=== PATIENT | female | born 1960 | race American Indian/Alaskan Native ===

== ENCOUNTER 2017-04-17 15:13 | Inpatient (IN) | payer OTHER ==
[2017-04-17 17:31] VITALS: BMI 25.3
--- NOTE | 2017-04-17 20:18 | HP ---
COWS - Scale Resting Pulse: 0= [place] 80 or Below Sweatin=Flushed/Facial Moisture Restless Observation: 1= Difficult to Sit Still Pupil Size: 1= Pupils >than Normal Bone or Joint Aches: 4=Acute Joint/Muscle Pain Runny Nose/ Eye Tearin= Runny Nose/Eyes GI Upset > 30mins: 2= Nausea/Diarrhea Tremor Observation: 2= Slight Tremor Visible Yawning Observation: 0= None Anxiety or Irritability: 4=Extreme Anxiety Goose Flesh Skin: 0=Smooth Skin COWS Score: 18 Admission [facility] Chief Complaint: Opiate withdrawal symptoms Allergies/Adverse Reactions: Allergies Allergy/AdvReac Type Severity Reaction Status Date / Time diphenhydramine HCl Allergy Mild Hives Verified 04/17/17 18:29 [From Benadryl] sulfur [From Sulfur-8] Allergy Mild Hives Verified 04/17/17 18:29 Sulfa (Sulfonamide Allergy Verified 04/17/17 18:29 Antibiotics) History of Present Illness: 56 years old female with opiate dependence is admitted to detox. Patient states that she has spinal problem and back pain and was prescribed oxycodone which led t her dependence on opiates. She states, ''I want to com off the narcotic''. Patient has medical history of HTN, Hep C, sickle cell trait, S/P stroke and brain aneurysm in December 2016 and Schizophrenia. Patient has right side weakness. Denies suicidal ideation. Exam Limitations: Physical Impairment (right side eakness) - Ebola screening Have you traveled outside of the country in the last 21 days: No Have you had contact with anyone from an Ebola affected area: No Have you been sick,other than usual withdrawal symptoms: No - Review of Systems Constitutional: Chills, Diaphoresis, Loss of Appetite, Malaise, Night Sweats, Changes in sleep, Weakness EENT: reports: Nose Congestion, Sinus Pressure Respiratory: reports: No Symptoms reported Cardiac: reports: No Symptoms Reported : reports: Discharge (brownish), Other (fishy odor) Musculoskeletal: reports: Muscle Pain, Muscle Weakness Integumentary: reports: Dryness, Flushing, Sweating Neuro: reports: Headache, Tingling, Tremors Endocrine: reports: Flushing Hematology: reports: Anemia (sickle cell trait) Psychiatric: reports: Mood/Affect Appropiate, Orientated x3, Anxious Other Systems: Reviewed and Negative Patient History - Patient Medical History Hx Anemia: Yes (SICKLE CELL TRAIT) Hx Asthma: No Hx Chronic Obstructive Pulmonary Disease (COPD): No Hx Cancer: No Hx Cardiac Disorders: No Hx Congestive Heart Failure: No Hx Hypertension: Yes Hx Hypercholesterolemia: No Hx Pacemaker: No HX Cerebrovascular Accident: No Hx Seizures: No Hx Dementia: No Hx Diabetes: No Hx Gastrointestinal Disorders: No Hx Liver Disease: No Hx Genitourinary Disorders: No Hx Sexually Transmitted Disorders: No Hx Renal Disease (ESRD): No Hx Thyroid Disease: No Hx Human Immunodeficiency Virus (HIV): No (NEGATIVE HX) Hx Hepatitis C: Yes (Not treated) Hx Depression: No Hx Suicide Attempt: No (DENIES) Hx Bipolar Disorder: No Hx Schizophrenia: Yes - Patient Surgical History Past Surgical History: No Hx Neurologic Surgery: No Hx Cataract Extraction: No Hx Cardiac Surgery: No Hx Lung Surgery: No Hx Breast Surgery: No Hx Breast Biopsy: No Hx Abdominal Surgery: No Hx Appendectomy: No Hx Cholecystectomy: No Hx Genitourinary Surgery: No Hx Section: No Hx Orthopedic Surgery: No Hx Hysterectomy: No Anesthesia Reaction: No - PPD History Previous Implant?: Yes Documented Results: Negative w/proof Implanted On Prior [facility] Admission?: Yes Date: 02/19/14 Results: 0 mm PPD to be Administered?: Yes - Reproductive History Patient is a Female of Child Bearing Age (11 -55 yrs old): Yes Last Menstrual Period: 02/15/10 Patient : No - Smoking Cessation Smoking history: Current every day smoker Have you smoked in the past 12 months: Yes Aproximately how many cigarettes per day: 10 Cigars Per Day: 0 Hx Chewing Tobacco Use: No Initiated information on smoking cessation: Yes 'Breaking Loose' booklet given: 04/17/17 - Substance & Tx. History Hx Alcohol Use: No Hx Substance Use: Yes (Morphine) Substance Use Type: Opiates Hx Substance Use Treatment: Yes ([facility] 02/2014) - Substances Abused Morphine Route: Oral Frequency: Daily Amount used: 30mg Age of first use: 56 Date of Last Use: 04/16/17 Family Disease History - Family Disease History Family Disease History: Heart Disease: Father (HTN), Mother (HTN), Other: Brother (KIDNEY DISEASE) Admission Physical Exam BHS - Vital Signs Vital Signs: Vital Signs - 24 hr 04/17/17 17:25 Temperature 96.2 F L Pulse Rate 64 Respiratory 18 Rate Blood Pressure 130/80 - Physical General Appearance: Yes: Moderate Distress, Tremorous, Irritable, Sweating, Anxious HEENTM: Yes: EOMI, Normal Voice, DEYA, Nasal Congestion, Rhinorrhea, Other ( Upper and lower dentures) Respiratory: Yes: Lungs Clear, Normal Breath Sounds, No Respiratory Distress Neck: Yes: Supple Breast: Yes: Breast Exam Deferred Cardiology: Yes: Regular Rhythm, Regular Rate, S1, S2 Abdominal: Yes: Within Normal Limits, Normal Bowel Sounds, Soft Genitourinary: Yes: Vaginal Discharge (brownish x 6 months), Other (fishy odor) Back: Yes: Normal Inspection Musculoskeletal: Yes: Back pain, Muscle Pain, Muscle weakness Extremities: Yes: Tremors Neurological: Yes: Fully Oriented, Alert Integumentary: Yes: Dry, Diaphoresis Lymphatic: Yes: Within Normal Limits - Diagnostic (1) Hep C w/o coma, chronic Current Visit: Yes Status: Chronic (2) Sickle cell trait Current Visit: No Status: Chronic (3) Cocaine dependence Current Visit: No Status: Active (4) Opioid dependence Current Visit: Yes Status: Active (5) Nicotine dependence Current Visit: Yes Status: Acute (6) Arthritis Current Visit: No Status: Chronic (7) Essential hypertension Current Visit: No Status: Chronic Cleared for Admission [facility] - Detox or Rehab [facility] Level of Care: Medically Managed Detox Regimen/Protocol: Methadone [facility] Breath Alcohol Content Breath Alcohol Content: 0 Urine Pregancy Test - Result Urine Test Results: Negative- NO Line Present Urine Drug Screen - Results Drug Screen Negative: No Urine Drug Screen Results: NAWAF-Cocaine, OPI-Opiates
[2017-04-17] MEDS ORDERED: ACETAMINOPHEN 325 MG TABLET (FP) PO PRN (20:37)
[2017-04-17] MEDS ORDERED: guaiFENesin/D-METHORPHAN HB 10 ML UNIT-DOSE CUPS PO PRN (20:37)
[2017-04-17] MEDS ORDERED: MAGNESIUM HYDROX 2400MG/30ML ORAL SUSPENSION 30 ML CUP PO PRN (20:37)
[2017-04-17] MEDS ORDERED: MAG HYDROX/AL HYDROX/SIMETH 30 ML UNIT-DOSE CUP PO PRN (20:37)
[2017-04-17] MEDS ORDERED: METHADONE HCL 10 MG TABLET (FOR DETOX USE ONLY) PO ONE ×2 (20:37→23:00)
[2017-04-17] MEDS ORDERED: NICOTINE POLACRILEX 2 MG GUM BUC PRN (20:37)
[2017-04-17] MEDS ORDERED: IBUPROFEN 400 MG TABLET (FP) PO PRN (20:37)
[2017-04-17] MEDS ORDERED: P-EPHED 60MG/TRIPROLIDI 2.5MG TABLET PO PRN (20:37)
[2017-04-17] MEDS ORDERED: MENTHOL/PHENOL 1 EACH UD MM PRN (20:37)
[2017-04-17] MEDS ORDERED: LOPERAMIDE HCL 2 MG CAPSULE PO PRN (20:37)
[2017-04-17] MEDS ORDERED: MAGNESIUM CITRATE 300 ML BOTTLE PO PRN (20:37)
[2017-04-17] MEDS: cloNIDine HCL 0.1 MG TABLET PO SCH (21:40)
[2017-04-17] MEDS: diazePAM 5 MG TABLET PO PRN (21:41)
[2017-04-17] MEDS: THIAMINE HCL 100 MG TABLET (FP) PO SCH (21:41)
[2017-04-17 22:54] LABS: URINE APPEARANCE SLCLOUDY; URINE BILIRUBIN NEGATIVE (NEGATIVE); URINE BLOOD NEGATIVE (NEGATIVE); URINE COLOR DKYELLOW; URINE GLUCOSE (UA) NEGATIVE (NEGATIVE); URINE KETONE NEGATIVE (NEGATIVE); URINE NITRITE NEGATIVE (NEGATIVE); URINE PROTEIN NEGATIVE (NEGATIVE)
[2017-04-18] MEDS: diazePAM 5 MG TABLET PO PRN ×4 (06:34→22:44)
[2017-04-18 09:08] LABS: URINE LEUK ESTERASE 3+ (NEGATIVE)
[2017-04-18 09:09] LABS: URINE BACTERIA MODERATE /hpf (NEGATIVE); URINE RBC 1; URINE WBC 15
[2017-04-18 09:44] LABS: MCH 32.1 pg (25.7-33.7); MCHC 33.5 g/dl (32.0-36.0); MEAN PLT VOLUME 8.2 fl (7.5-11.1); PLATELET COUNT 244 K/MM3 (134-434); RDW 13.1 % (11.6-15.6); WHITE BLOOD COUNT 6.5 K/mm3 (4.0-10.0)
[2017-04-18] MEDS ORDERED: METHADONE HCL 10 MG TABLET (FOR DETOX USE ONLY) PO ONE (10:00)
[2017-04-18] MEDS: PRENATAL VITAMINS W/ FOLIC ACID TABLET (FP) PO SCH (10:39)
[2017-04-18] MEDS: LISINOPRIL 20 MG TABLET (FP) PO SCH (10:40)
[2017-04-18] MEDS: ASPIRIN 81 MG CHEWABLE TABLETS PO SCH (10:40)
[2017-04-18] MEDS: cloNIDine HCL 0.1 MG TABLET PO SCH ×2 (10:40→22:43)
[2017-04-18] MEDS: NIFEdipine E.R 60 MG TABLET (UD) PO SCH (10:40)
[2017-04-18] MEDS: NICOTINE 14 MG/24 HOURS TOPICAL PATCH TD SCH (10:40)
[2017-04-18 11:08] LABS: ALBUMIN 3.1 g/dl (3.4-5.0); ANION GAP 6 (8-16); CALCIUM 8.4 mg/dL (8.5-10.1); CO2 29 mmol/L (21-32); CREATININE 1.1 mg/dL (0.55-1.02); GLUCOSE,RANDOM 133 mg/dL (74-106); SGOT/AST 47 U/L (15-37); SGPT/ALT 28 U/L (12-78)
[2017-04-18 11:10] LABS: ALK PHOS 53 U/L (45-117); BILIRUBIN,TOTAL 0.6 mg/dL (0.2-1.0); TOT PROT 6.4 g/dl (6.4-8.2)
--- NOTE | 2017-04-18 11:24 | PN ---
S COWS - Scale Resting Pulse: 0= [place] 80 or Below Sweatin=Flushed/Facial Moisture Restless Observation: 1= Difficult to Sit Still Pupil Size: 0= Normal to Room Light Bone or Joint Aches: 2= Severe Diffuse Aches Runny Nose/ Eye Tearin= Runny Nose/Eyes GI Upset > 30mins: 1= Stomach Cramp Tremor Observation of Outstretched Hands: 2= Slight Tremor Visible Yawning Observation: 2= >3x During Session Anxiety or Irritability: 2=Irritable/Anxious Goose Flesh Skin: 3=Piloerection COWS Score: 17 S Progress Note (SOAP) Subjective: constipation fishy odor vaginally sweats shakes interrupted sleep Objective: 04/18/17 11:23 Vital Signs Temperature 97.5 F L 04/18/17 10:29 Pulse Rate 69 04/18/17 10:29 Respiratory Rate 18 04/18/17 10:29 Blood Pressure 119/76 04/18/17 10:29 O2 Sat by Pulse Oximetry (%) Laboratory Tests 04/17/17 04/18/17 04/18/17 22:40 07:35 07:35 WBC 6.5 RBC 3.77 Hgb 12.1 Hct 36.2 MCV 96.0 MCH 32.1 MCHC 33.5 RDW 13.1 Plt Count 244 D MPV 8.2 Sodium 142 Potassium 3.9 Chloride 107 Carbon Dioxide 29 Anion Gap 6 L BUN 14 Creatinine 1.1 H D Creat Clearance w eGFR 51.38 Random Glucose 133 H Calcium 8.4 L Total Bilirubin 0.6 AST 47 H D ALT 28 D Alkaline Phosphatase 53 D Total Protein 6.4 Albumin 3.1 L D Urine Color Dkyellow Urine Appearance Slcloudy Urine pH 5.0 Ur Specific [place] 1.016 Urine Protein Negative Urine Glucose (UA) Negative Urine Ketones Negative Urine Blood Negative Urine Nitrite Negative Urine Bilirubin Negative Urine Urobilinogen 2.0 H Ur Leukocyte Esterase 3+ H Urine RBC 1 Urine WBC 15 Ur Epithelial Cells Moderate Urine Bacteria Moderate aaox3 ambulating no acute distress Assessment: 04/18/17 11:23 withdrawal sx Plan: continue detox increase fluids flagly ordered colace tid
--- NOTE | 2017-04-18 11:28 | PN ---
BHS Progress Note (SOAP) Subjective: anal area is irritable sweats anxiety Objective: 04/18/17 11:27 Vital Signs Temperature 97.5 F L 04/18/17 10:29 Pulse Rate 69 04/18/17 10:29 Respiratory Rate 18 04/18/17 10:29 Blood Pressure 119/76 04/18/17 10:29 O2 Sat by Pulse Oximetry (%) repeat potassium level pending aaox3 ambulating no acute distress Assessment: 04/18/17 11:28 mild withdrawal sx Plan: continue detox tucks pads ordered f/u pending labs d/c in am
[2017-04-18] MEDS: DOCUSATE SODIUM 100 MG CAPSULE (FP) PO SCH ×3 (11:53→22:43)
[2017-04-18] MEDS: metroNIDAZOLE 250 MG TABLET PO SCH ×3 (11:54→22:43)
--- NOTE | 2017-04-18 11:58 | EKG ---
Test Reason : Blood Pressure : / mmHG Vent. Rate : 060 BPM Atrial Rate : 060 BPM P-R Int : 192 ms QRS Dur : 086 ms QT Int : 436 ms P-R-T Axes : 050 044 051 degrees QTc Int : 436 ms NORMAL SINUS RHYTHM SEPTAL INFARCT , AGE UNDETERMINED ABNORMAL ECG NO PREVIOUS ECGS AVAILABLE Confirmed by ARIELLA TSAI MD ([id number]) on 04/18/2017 11:58:07 AM Referred By: ANETTE MONAHAN Confirmed By:ARIELLA TSAI MD
--- NOTE | 2017-04-18 12:22 | CONSULT ---
[facility] Psychiatric Consult - Data Date of interview: 04/18/17 Admission source: [facility] Identifying data: Readmission to [facility] for this 56 y/o AA female seeking detox treatment on for morphone dependence.Patient is single ,mother of two,domiciled,unemployed and supported on SSI benefits. Substance Abuse History: Discussed in this session.Patient confirmed actve use of morphine. Smoking history: Current every day smoker. Have you smoked in the past 12 months: Yes. Aproximately how many cigarettes per day: 10. Cigars Per Day: 0. Hx Chewing Tobacco Use: No. Initiated information on smoking cessation: Yes. 'Breaking Loose' booklet given: 04/17/17. - Substance & Tx. History. Hx Alcohol Use: No. Hx Substance Use: Yes (Morphine). Substance Use Type: Opiates. Hx Substance Use Treatment: Yes ([facility] 02/2014). - Substances Abused. Morphine. Route: Oral. Frequency: Daily. Amount used: 30mg. Age of first use: 56. Date of Last Use: 04/16/17 Medical History: Hypertension,arthritis,sickle cell trait,hepatitis C and recent CVA with right-sided weakness (12/2016). Psychiatric History: Patient admits to history of psychiatric hospitalizations ( [facility]).Diagnosed with Schizoaffective Disorder (self-report).Followed at the [facility] OPD clinic ([phone] ).Patient is reportedly prescribed wellbutrin 75 mg/day + haldol decanoate 50 mg IM monthly (last dose in March 2017 but no recall of exact date) + ambien 10 mg/hs.Ms Cook reports one suicide attempt via overdose with darvocet ( 1997). Physical/Sexual Abuse/Trauma History: No reported history of abuse. Additional Comment: Urine Drug Screen Results: NAWAF-Cocaine, OPI-Opiates.Noted. Mental Status Exam - Mental Status Exam Alert and Oriented to: Time, Place, Person Cognitive Function: Good Patient Appearance: Well Groomed Mood: Anxious, Hopeful Affect: Mood Congruent, Constricted (mildly constricted) Patient Behavior: Fatigued, Appropriate, Cooperative Speech Pattern: Clear, Appropriate Voice Loudness: Normal Thought Process: Intact, Goal Oriented Thought Disorder: Not Present Hallucinations: Denies Suicidal Ideation: Denies Homicidal Ideation: Denies Insight/Judgement: Poor Sleep: Poorly, Difficulty falling asleep Appetite: Good Gait/Station: Shuffling (slow gait) Psychiatric Findings - Problem List ([place] 1, 2,3) (1) Opioid dependence Current Visit: Yes Status: Acute (2) Cocaine dependence Current Visit: Yes Status: Active (3) Nicotine dependence Current Visit: Yes Status: Acute Qualifiers: Nicotine product type: cigarettes Substance use status: uncomplicated Qualified Code(s): F17.210 - Nicotine dependence, cigarettes, uncomplicated (4) Schizoaffective disorder Current Visit: Yes Status: Chronic Comment: On medications.Compliant. (5) Insomnia Current Visit: Yes Status: Acute - Initial Treatment Plan Initial Treatment Plan: Multiple attempts made to contact patient's psychiatrist ([phone]) for verification of date of last injection of decanoate haloperidol : unsuccessful (voicemail).No message left.[employer]ist spoke to pharmacist at [phone] : refill for haldol decanoate 50 mg/on dose was issued on 02/13/2017.Psychoeducation.Sleep hygiene.Detoxification in progress.Ambien 10 mg po hs prn + wellbutrin 75 mg po daily.Haldol decanoate is held until confirmation of date of last injection (will continue to call provider for information).Side effects/benefits of medications are discussed with patient.She is in agreement with this careplan.Observation.
[2017-04-18] MEDS: ZOLPIDEM TARTRATE 10 MG TABLET (PARK CARE ONLY) PO PRN (22:43)
[2017-04-18] MEDS: THIAMINE HCL 100 MG TABLET (FP) PO SCH (22:43)
[2017-04-19] MEDS: DOCUSATE SODIUM 100 MG CAPSULE (FP) PO SCH ×3 (05:35→22:28)
[2017-04-19] MEDS: metroNIDAZOLE 250 MG TABLET PO SCH ×3 (05:35→22:27)
[2017-04-19] MEDS: diazePAM 5 MG TABLET PO PRN ×5 (05:35→22:28)
[2017-04-19] MEDS ORDERED: METHADONE HCL 5 MG TABLET (FOR DETOX USE ONLY) PO ONE (10:00)
[2017-04-19] MEDS: ASPIRIN 81 MG CHEWABLE TABLETS PO SCH (10:53)
[2017-04-19] MEDS: LISINOPRIL 20 MG TABLET (FP) PO SCH (10:53)
[2017-04-19] MEDS: cloNIDine HCL 0.1 MG TABLET PO SCH ×2 (10:53→22:27)
[2017-04-19] MEDS: NIFEdipine E.R 60 MG TABLET (UD) PO SCH (10:54)
[2017-04-19] MEDS: buPROPion HCL 75 MG TABLET PO SCH (10:54)
[2017-04-19] MEDS: PRENATAL VITAMINS W/ FOLIC ACID TABLET (FP) PO SCH (10:54)
--- NOTE | 2017-04-19 14:45 | PN ---
BHS COWS - Scale Resting Pulse: 1= [place] 81-100 Sweatin= Chills/Flushing Restless Observation: 3= Extraneous Movement Pupil Size: 1= Pupils >than Normal Bone or Joint Aches: 2= Severe Diffuse Aches Runny Nose/ Eye Tearin= Nasal Congestion GI Upset > 30mins: 2= Nausea/Diarrhea Tremor Observation of Outstretched Hands: 2= Slight Tremor Visible Yawning Observation: 1= 1-2x During Session Anxiety or Irritability: 2=Irritable/Anxious Goose Flesh Skin: 0=Smooth Skin COWS Score: 16 BHS Progress Note (SOAP) Subjective: alert,irritable,anxious,interrupted sleep,pain in the body stated sitting in the toilette has the bruise in left thigh but examination in injury,no bruise noted Objective: 04/19/17 14:41 Vital Signs Temperature 97.7 F 04/19/17 10:23 Pulse Rate 71 04/19/17 10:23 Respiratory Rate 16 04/19/17 10:23 Blood Pressure 121/78 04/19/17 10:23 O2 Sat by Pulse Oximetry (%) Laboratory Last Values WBC 6.5 K/mm3 (4.0-10.0) 04/18/17 07:35 RBC 3.77 M/mm3 (3.60-5.2) 04/18/17 07:35 Hgb 12.1 GM/dL (10.7-15.3) 04/18/17 07:35 Hct 36.2 % (32.4-45.2) 04/18/17 07:35 MCV 96.0 fl (80-96) 04/18/17 07:35 MCH 32.1 pg (25.7-33.7) 04/18/17 07:35 MCHC 33.5 g/dl (32.0-36.0) 04/18/17 07:35 RDW 13.1 % (11.6-15.6) 04/18/17 07:35 Plt Count 244 K/MM3 (134-434) D 04/18/17 07:35 MPV 8.2 fl (7.5-11.1) 04/18/17 07:35 Sodium 142 mmol/L (136-145) 04/18/17 07:35 Potassium 3.9 mmol/L (3.5-5.1) 04/18/17 07:35 Chloride 107 mmol/L (98-107) 04/18/17 07:35 Carbon Dioxide 29 mmol/L (21-32) 04/18/17 07:35 Anion Gap 6 (8-16) L 04/18/17 07:35 BUN 14 mg/dL (7-18) 04/18/17 07:35 Creatinine 1.1 mg/dL (0.55-1.02) H D 04/18/17 07:35 Creat Clearance w eGFR 51.38 (>60) 04/18/17 07:35 Random Glucose 133 mg/dL (74-106) H 04/18/17 07:35 Calcium 8.4 mg/dL (8.5-10.1) L 04/18/17 07:35 Total Bilirubin 0.6 mg/dL (0.2-1.0) 04/18/17 07:35 AST 47 U/L (15-37) H D 04/18/17 07:35 ALT 28 U/L (12-78) D 04/18/17 07:35 Alkaline Phosphatase 53 U/L (45-117) D 04/18/17 07:35 Total Protein 6.4 g/dl (6.4-8.2) 04/18/17 07:35 Albumin 3.1 g/dl (3.4-5.0) L D 04/18/17 07:35 Urine Color Dkyellow 04/17/17 22:40 Urine Appearance Slcloudy 04/17/17 22:40 Urine pH 5.0 (5.0-8.0) 04/17/17 22:40 Ur Specific [place] 1.016 (1.001-1.035) 04/17/17 22:40 Urine Protein Negative (NEGATIVE) 04/17/17 22:40 Urine Glucose (UA) Negative (NEGATIVE) 04/17/17 22:40 Urine Ketones Negative (NEGATIVE) 04/17/17 22:40 Urine Blood Negative (NEGATIVE) 04/17/17 22:40 Urine Nitrite Negative (NEGATIVE) 04/17/17 22:40 Urine Bilirubin Negative (NEGATIVE) 04/17/17 22:40 Urine Urobilinogen 2.0 mg/dL (0.2-1.0) H 04/17/17 22:40 Ur Leukocyte Esterase 3+ (NEGATIVE) H 04/17/17 22:40 Urine RBC 1 04/17/17 22:40 Urine WBC 15 04/17/17 22:40 Ur Epithelial Cells Moderate /HPF 04/17/17 22:40 Urine Bacteria Moderate /hpf (NEGATIVE) 04/17/17 22:40 RPR Titer Nonreactive (NONREACTIVE) 04/18/17 07:35 Assessment: 04/19/17 14:45 withdrawal symptom Plan: continue detox,initial glucose 133,fasting glucose in am
[2017-04-19] MEDS: NICOTINE 14 MG/24 HOURS TOPICAL PATCH TD SCH (15:37)
[2017-04-19] MEDS: THIAMINE HCL 100 MG TABLET (FP) PO SCH (22:27)
[2017-04-19] MEDS: ZOLPIDEM TARTRATE 10 MG TABLET (PARK CARE ONLY) PO PRN (22:30)
[2017-04-20] MEDS: DOCUSATE SODIUM 100 MG CAPSULE (FP) PO SCH ×3 (05:48→22:42)
[2017-04-20] MEDS: metroNIDAZOLE 250 MG TABLET PO SCH ×3 (05:48→22:42)
[2017-04-20] MEDS: diazePAM 5 MG TABLET PO PRN ×4 (05:50→19:55)
[2017-04-20] MEDS ORDERED: METHADONE HCL 5 MG TABLET (FOR DETOX USE ONLY) PO ONE (10:00)
[2017-04-20] MEDS: cloNIDine HCL 0.1 MG TABLET PO SCH ×2 (10:41→22:42)
[2017-04-20] MEDS: buPROPion HCL 75 MG TABLET PO SCH (10:41)
[2017-04-20] MEDS: PRENATAL VITAMINS W/ FOLIC ACID TABLET (FP) PO SCH (10:41)
[2017-04-20] MEDS: LISINOPRIL 20 MG TABLET (FP) PO SCH (10:41)
[2017-04-20] MEDS: ASPIRIN 81 MG CHEWABLE TABLETS PO SCH (10:41)
[2017-04-20] MEDS: NIFEdipine E.R 60 MG TABLET (UD) PO SCH (10:41)
[2017-04-20] MEDS: NICOTINE 14 MG/24 HOURS TOPICAL PATCH TD SCH (10:42)
--- NOTE | 2017-04-20 11:14 | PN ---
S Progress Note (SOAP) Subjective: alert,irritable,anxious,interrupted sleep,tremor Objective: 04/20/17 11:12 Vital Signs Temperature 97.7 F 04/20/17 10:49 Pulse Rate 69 04/20/17 10:49 Respiratory Rate 18 04/20/17 10:49 Blood Pressure 132/83 04/20/17 10:49 O2 Sat by Pulse Oximetry (%) Assessment: 04/20/17 11:12 withdrawal symptom Plan: continue detox,fasting glucose pending
[2017-04-20] MEDS: THIAMINE HCL 100 MG TABLET (FP) PO SCH (22:42)
[2017-04-20] MEDS: ZOLPIDEM TARTRATE 10 MG TABLET (PARK CARE ONLY) PO PRN (22:44)
[2017-04-20] MEDS: hydrOXYzine PAMOATE 50 MG CAPSULE (FP) PO PRN (22:46)
[2017-04-21] MEDS: metroNIDAZOLE 250 MG TABLET PO SCH ×3 (06:16→22:17)
[2017-04-21] MEDS: DOCUSATE SODIUM 100 MG CAPSULE (FP) PO SCH ×3 (06:16→22:17)
[2017-04-21] MEDS: hydrOXYzine PAMOATE 50 MG CAPSULE (FP) PO PRN ×3 (06:19→15:14)
[2017-04-21] MEDS ORDERED: METHADONE HCL 10 MG TABLET (FOR DETOX USE ONLY) PO ONE (10:00)
[2017-04-21] MEDS: NIFEdipine E.R 60 MG TABLET (UD) PO SCH (10:31)
[2017-04-21] MEDS: LISINOPRIL 20 MG TABLET (FP) PO SCH (10:31)
[2017-04-21] MEDS: cloNIDine HCL 0.1 MG TABLET PO SCH ×2 (10:31→22:17)
[2017-04-21] MEDS: buPROPion HCL 75 MG TABLET PO SCH (10:31)
[2017-04-21] MEDS: ASPIRIN 81 MG CHEWABLE TABLETS PO SCH (10:31)
[2017-04-21] MEDS: PRENATAL VITAMINS W/ FOLIC ACID TABLET (FP) PO SCH (10:32)
[2017-04-21] MEDS: NICOTINE 14 MG/24 HOURS TOPICAL PATCH TD SCH (10:34)
--- NOTE | 2017-04-21 10:34 | PN ---
BHS Progress Note (SOAP) Subjective: sweats feeling much better Objective: 04/21/17 10:33 Vital Signs Temperature 97.0 F L 04/21/17 09:47 Pulse Rate 71 04/21/17 09:47 Respiratory Rate 16 04/21/17 09:47 Blood Pressure 105/81 04/21/17 09:47 O2 Sat by Pulse Oximetry (%) aaox3 ambulating no acute distress Assessment: 04/21/17 10:33 mild withdrawal sx Plan: continue detox increase fluids d/c in am
[2017-04-21] MEDS: ZOLPIDEM TARTRATE 10 MG TABLET (PARK CARE ONLY) PO PRN (21:42)
[2017-04-21] MEDS: THIAMINE HCL 100 MG TABLET (FP) PO SCH (22:17)
[2017-04-22] MEDS: DOCUSATE SODIUM 100 MG CAPSULE (FP) PO SCH (05:41)
[2017-04-22] MEDS: metroNIDAZOLE 250 MG TABLET PO SCH (05:41)
[2017-04-22] MEDS: hydrOXYzine PAMOATE 50 MG CAPSULE (FP) PO PRN (05:44)
[2017-04-22] MEDS ORDERED: METHADONE HCL 5 MG TABLET (FOR DETOX USE ONLY) PO ONE (06:00)
[2017-04-22 06:35] VITALS: BP 128/73; PULSE 52; TEMP 96.1
--- NOTE | 2017-04-22 09:04 | DS ---
[facility] Detox Discharge Summary Admission Date: 04/17/17 Discharge Date: 04/22/17 - History Present History: Cocaine Dependence, Opioid Dependence - Physical Exam Results Vital Signs: Vital Signs Temperature 96.1 F L 04/22/17 06:00 Pulse Rate 52 L 04/22/17 06:00 Respiratory Rate 18 04/22/17 06:00 Blood Pressure 128/73 04/22/17 06:00 O2 Sat by Pulse Oximetry (%) - Treatment Hospital Course: Detox Protocol Followed, Detoxed Safely, Responded well, Discharged Condition Good, Rehab Referral Accepted - Medication Discharge Medications: Ambulatory Orders Aspirin [ASA -] 81 mg PO DAILY 04/17/17 Bupropion HCl [Wellbutrin -] 75 mg PO DAILY 04/17/17 Clonidine HCl [Catapres -] 0.2 mg PO BID 04/17/17 Haloperidol Decanoate [Haldol Decanoate 50] 50 mg IM MONTHLY 04/17/17 Lisinopril [Prinivil] 20 mg PO DAILY 04/17/17 Nifedipine ER [Procardia Xl -] 60 mg PO DAILY 04/17/17 Vit D3/Folic Acid/B2/B6/B12 [Folgard Tablet] 1 each PO DAILY 04/17/17 Bupropion HCl [Wellbutrin -] 75 mg PO DAILY #30 tablet 04/18/17 - Diagnosis (1) Opioid dependence Current Visit: Yes Status: Chronic (2) Nicotine dependence Current Visit: Yes Status: Chronic Qualifiers: Nicotine product type: cigarettes Substance use status: uncomplicated Qualified Code(s): F17.210 - Nicotine dependence, cigarettes, uncomplicated (3) Hep C w/o coma, chronic Current Visit: Yes Status: Chronic (4) Cocaine dependence Current Visit: Yes Status: Chronic (5) Weight decreased Current Visit: No Status: Active (6) Arthritis Current Visit: No Status: Chronic (7) Essential hypertension Current Visit: No Status: Chronic (8) Schizoaffective disorder Current Visit: Yes Status: Chronic (9) Sickle cell trait Current Visit: No Status: Chronic - AMA Did Patient Leave Against Medical Advice: No
[2017-04-22] MEDS: ASPIRIN 81 MG CHEWABLE TABLETS PO SCH (09:25)
[2017-04-22] MEDS: buPROPion HCL 75 MG TABLET PO SCH (09:25)
[2017-04-22] MEDS: PRENATAL VITAMINS W/ FOLIC ACID TABLET (FP) PO SCH (09:25)
[2017-04-22] MEDS: LISINOPRIL 20 MG TABLET (FP) PO SCH (09:25)
[2017-04-22] MEDS: NICOTINE 14 MG/24 HOURS TOPICAL PATCH TD SCH (09:25)
[2017-04-22] MEDS: NIFEdipine E.R 60 MG TABLET (UD) PO SCH (09:25)
[2017-04-22] MEDS: cloNIDine HCL 0.1 MG TABLET PO SCH (09:26)
== END 2017-04-22 09:45 | disposition home or self-care (01) | DRG 773 ==
LOC: YASAS 15:13 → Y6N 19:01
PROVIDERS: ADMIT Internal Medicine; ATTEND Internal Medicine
PROC: HZ2ZZZZ Detoxification Services for Substance Abuse Treatment (ICD-10-PCS; principal; 2017-04-17)
DX: F11.23 Opioid dependence with withdrawal (principal); F14.20 Cocaine dependence, uncomplicated; F17.210 Nicotine dependence, cigarettes, uncomplicated; F25.9 Schizoaffective disorder, unspecified; I10 Essential (primary) hypertension; G47.00 Insomnia, unspecified; M12.9 Arthropathy, unspecified; B18.2 Chronic viral hepatitis C; D57.3 Sickle-cell trait; R63.4 Abnormal weight loss; Z68.25 Body mass index [BMI] 25.0-25.9, adult
CPT/HCPCS: 36415; 80053; 81003; 81015; 82947; 85027; 86593; 93005; 93010